=== PATIENT | female | born 1955 | race Caucasian/White ===

== ENCOUNTER 2020-01-17 14:47 | Emergency (ER) | payer BC, OTHER ==
[2020-01-17] MEDS ORDERED: Ketorolac 30 MG/ML SDV IM ONE (15:37)
--- NOTE | 2020-01-17 15:38 | EDM.PDOC ---
ED HPI GENERAL MEDICAL PROBLEM - General Chief Complaint: Neuro Symptoms/Deficits Stated Complaint: MIGRAINE Time Seen by Provider: 01/17/20 15:20 - History of Present Illness INITIAL COMMENTS - FREE TEXT/NARRATIVE: [place] comes into [facility] ED with a 5 hour hx of R supraorbital pain rated 8-9/10 radiating into the anterior frontal scalp. Pain is sharp, associated with some nausea but no vomiting. She took 1 ASA tabs for relief, pain currently at 5/10. Her PB was also significantly elevated, sys 200's, diastolics in 70's, and additional concern over FMH of cerebral aneurysms. She reports no hx of head trauma, seizures, or headache syndrome. - Related Data Allergies Allergy/AdvReac Type Severity Reaction Status Date / Time amoxicillin [Amoxicillin] Allergy Mild Hives Verified 08/29/13 15:16 Home Meds: Home Meds Ibuprofen 400 mg PO Q6H PRN 08/16/13 [History] Metoprolol Succinate [Toprol XL 100mg] 100 mg PO DAILY 08/16/13 [History] amLODIPine Besylate [Amlodipine Besylate] 5 mg PO DAILY 08/16/13 [History] Lisinopril/Hydrochlorothiazide [Lisinopril-Hctz 20-25 mg Tab] 1 tab PO DAILY 09/06 [History] Past Medical History Cardiovascular History: Reports: Hypertension Social & Family History - Tobacco Use Smoking Status *Q: Never Smoker - Caffeine Use Caffeine Use: Reports: Coffee - Recreational Drug Use Recreational Drug Use: No ED ROS GENERAL - Review of Systems Review Of Systems: See Below Constitutional: Reports: No Symptoms HEENT: Reports: No Symptoms Respiratory: Reports: No Symptoms Cardiovascular: Reports: No Symptoms Endocrine: Reports: No Symptoms GI/Abdominal: Reports: Nausea Musculoskeletal: Reports: No Symptoms Skin: Reports: No Symptoms Neurological: Reports: Headache Psychiatric: Reports: No Symptoms Hematologic/Lymphatic: Reports: No Symptoms Immunologic: Reports: No Symptoms - Physical Exam Exam: See Below Exam Limited By: No Limitations General Appearance: Alert, WD/WN, No Apparent Distress, Anxious Eye Exam: Bilateral Eye: EOMI, Normal Fundi, Normal Inspection, PERRL Ears: Normal External Exam, Normal Canal, Normal TMs Nose: Normal Inspection, Normal Mucosa Throat/Mouth: Normal Inspection, Normal Lips, Normal Teeth, Normal Gums, Normal Oropharynx, Normal Voice, No Airway Compromise Head Exam: Normocephalic, Other (tender overlying the supraorbital notch on R) Neck: Normal Inspection, Supple, Non-Tender, Full Range of Motion Respiratory/Chest: Lungs Clear, No Accessory Muscle Use, Chest Non-Tender Cardiovascular: Regular Rate, Rhythm, No Edema, No JVD, No Murmur GI/Abdominal: Normal Bowel Sounds, Soft, Non-Tender, No Organomegaly, No Mass (Female) Exam: Deferred Rectal (Female) Exam: Deferred Neuro Exam (Abbreviated): Alert, Oriented, CN II-XII Intact, Normal Cognition, No Motor/Sensory Deficits Back Exam: Normal Inspection Extremities: Normal Inspection Psychiatric: Normal Affect, Normal Mood Skin Exam: Warm, Dry, Intact, Normal Color, No Rash Course - Vital Signs Text/Narrative:: Following assessment, a noncontrast Head CT was performed, normal for age. I administered Toradol 30 mg IV for relief of neuralgia with improvement. Last Recorded V/S: Last Vital Signs Temp 36.7 C 01/17/20 14:47 Pulse 83 01/17/20 14:47 Resp 16 01/17/20 14:47 BP 202/68 H 01/17/20 14:47 Pulse Ox 96 01/17/20 14:47 - Orders/Labs/Meds Orders: Active Orders 24 hr Category Date Time Status Head wo Cont [CT] Stat Exams 01/17/20 14:55 Taken Sodium Chloride 0.9% [Saline Flush] Med 01/17/20 16:09 Active 10 ml FLUSH ASDIRECTED PRN Saline Lock Insert [OM.PC] Routine Oth 01/17/20 16:09 Ordered Medication Orders Sodium Chloride (Saline Flush) 10 ml FLUSH ASDIRECTED PRN PRN Reason: Keep Vein Open Last Admin: 01/17/20 16:09 Dose: 10 ml Meds: Medications Generic Name Dose Route Start Last Admin Trade Name Freq PRN Reason Stop Dose Admin Sodium Chloride 10 ml 01/17/20 16:09 01/17/20 16:09 Saline Flush FLUSH 10 ml ASDIRECTED PRN Administration Keep Vein Open Discontinued Medications Generic Name Dose Route Start Last Admin Trade Name Freq PRN Reason Stop Dose Admin Ketorolac Tromethamine 30 mg 01/17/20 15:37 01/17/20 16:09 Toradol IM 01/17/20 15:38 Not Given ONETIME ONE Ketorolac Tromethamine 30 mg 01/17/20 15:47 01/17/20 16:05 Toradol IVPUSH 01/17/20 15:48 30 mg ONETIME ONE Administration Departure - Departure Time of Disposition: 16:32 Disposition: Home, Self-Care 01 Condition: Good Clinical Impression: Supraorbital headache - Discharge Information *PRESCRIPTION DRUG MONITORING PROGRAM REVIEWED*: Not Applicable *COPY OF PRESCRIPTION DRUG MONITORING REPORT IN PATIENT CRISTINA: Not Applicable Referrals: Ayah العراقي MD [Primary Care Provider] - Forms: ED Department Discharge Sepsis Event Note - Evaluation Sepsis Screening Result: No Definite Risk - Focused Exam Vital Signs: Vital Signs Temp Pulse Resp BP Pulse Ox 01/17/20 14:47 36.7 C 83 16 202/68 H 96 Date Exam was Performed: 01/17/20 Time Exam was Performed: 16:32 - Problem List & Annotations (1) Supraorbital headache SNOMED Code(s): 06764860 Code(s): R51 - HEADACHE Status: Acute Current Visit: Yes Annotation/ Comment:: She may take NSAIDs for any relapse of pain, and monitor BP at home. - Problem List Review Problem List Initiated/Reviewed/Updated: Yes - My Orders Last 24 Hours: My Active Orders 01/17/20 14:55 Head wo Cont [CT] Stat 01/17/20 16:09 Sodium Chloride 0.9% [Saline Flush] 10 ml FLUSH ASDIRECTED PRN Saline Lock Insert [OM.PC] Routine - Assessment/Plan Last 24 Hours: My Active Orders 01/17/20 14:55 Head wo Cont [CT] Stat 01/17/20 16:09 Sodium Chloride 0.9% [Saline Flush] 10 ml FLUSH ASDIRECTED PRN Saline Lock Insert [OM.PC] Routine Assessment:: Follow up with PCP if needed.
[2020-01-17] MEDS ORDERED: Ketorolac 30 MG/ML SDV IVPUSH ONE (15:47)
[2020-01-17] MEDS ORDERED: Sodium Chloride 0.9% 10 ML Syringe FLUSH PRN (16:09)
--- NOTE | 2020-01-17 17:34 | CT ---
INDICATION: Sudden onset headache frontal, family history of brain aneurysm ( sister). Elevated BP. CT HEAD WITHOUT CONTRAST: Spiral 3.75 mm axial sections were obtained through the brain without contrast 01/17/20 - no comparisons. Paranasal sinuses and mastoid air cells are well aerated. No cranial abnormality was identified. No shift of midline structures, ventricular abnormalities or abnormal areas of density were identified. Orbits appear to be intact. Calcifications are noted in the left vertebral and bilateral internal carotid arteries. No definite aneurysm, bleeding site or hematoma was identified. If symptoms persist - if occult aneurysm is suspected clinically, reexamination with IV contrast or MRI may be helpful. IMPRESSION: Normal CT brain without contrast. Report was given in person to Dr. Stevens at 1319 hours. Total exam DLP was 1244.99 mGy-cm. MTDD
== END 2020-01-17 16:54 | disposition home or self-care (01) ==
LOC: FB.ED 14:47
DX: R51 Headache (principal); I10 Essential (primary) hypertension; Z88.1 Allergy status to other antibiotic agents; Z79.899 Other long term (current) drug therapy
CPT/HCPCS: 70450; 96374; 99284; J1885

== ENCOUNTER 2022-11-23 14:35 | Emergency (ER) | payer MEDICARE ==
[2022-11-23 15:37] LABS: ESTIMATED GFR 41 mL/min (>60)
[2022-11-23] MEDS ORDERED: Sodium Chloride 0.9% 1,000 ML IV ONE (15:56)
[2022-11-23] MEDS ORDERED: Magnesium Sulfate/Water 2 GM in Premix Bag 1 BAG IV SCH (16:00)
[2022-11-23] MEDS ORDERED: Magnesium Sulfate/Water 2 GM in Premix Bag 1 BAG IV ONE ×2 (16:22→16:24)
[2022-11-23] MEDS ORDERED: Nitrofurantoin Monohydrate/Macrocrystalline 100 MG Cap PO ONE (18:32)
[2022-11-23] MEDS ORDERED: Nitrofurantoin Monohydrate/Macrocrystalline 100 MG Cap ONE (18:54)
[2022-11-24] MEDS ORDERED: Nitrofurantoin Monohydrate/Macrocrystalline 100 MG Cap PO SCH (09:00)
== END 2022-11-23 19:12 | disposition home or self-care (01) ==
LOC: FB.ED 14:35
DX: N39.0 Urinary tract infection, site not specified (principal); R19.7 Diarrhea, unspecified; E83.42 Hypomagnesemia; I10 Essential (primary) hypertension; E66.9 Obesity, unspecified; Z79.899 Other long term (current) drug therapy; Z88.0 Allergy status to penicillin; Z68.33 Body mass index [BMI] 33.0-33.9, adult
CPT/HCPCS: 36415; 80053; 81001; 83605; 83735; 85025; 86140; 87086; 96365; 96366; 99284-25; A9270-GY; J3475; J7030